=== PATIENT | female | born 1970 | race Caucasian/White ===

== ENCOUNTER 2019-04-08 22:59 | Emergency (ER) | payer SELFPAY ==
[~2019-04-08] VITALS: Ht 162.6 cm; Wt 75.1 kg
[2019-04-08 23:07] VITALS: Ht 162.6 cm; Wt 75.1 kg
[2019-04-09 00:31] VITALS: BP 126/79
== END 2019-04-09 00:31 | disposition home or self-care (01) ==
LOC: ED 22:59
DX: R21 Rash and other nonspecific skin eruption (principal); L29.9 Pruritus, unspecified

== ENCOUNTER 2019-05-21 10:48 | Emergency (ER) | payer SELFPAY ==
[~2019-05-21] VITALS: Ht 162.6 cm; Wt 74.4 kg
[2019-05-21 10:59] VITALS: Ht 162.6 cm; Wt 74.4 kg
[2019-05-21 13:26] VITALS: BP 139/89
== END 2019-05-21 13:26 | disposition home or self-care (01) ==
LOC: ED 10:48
DX: R51 Headache (principal); E78.00 Pure hypercholesterolemia, unspecified
CPT/HCPCS: J1885